=== PATIENT | male | born 1935 | race Caucasian/White ===

== ENCOUNTER 2017-06-12 07:51 | Observation (INO) | payer MEDICARE ==
[2017-06-12 08:55] LABS: ABS Basophils 0.1 10^3/ul (0-0.2); ABS Eosinophils 0.1 10^3/ul (0-0.6); ABS Lymphocytes 2.3 10^3/ul (1.0-4.8); ABS Monocytes 0.8 10^3/ul (0-0.8); ABS Neutrophils 5.6 10^3/ul (1.5-7.7); ABS Nucleated RBC 0 10^3/ul; Eosinophil % 1.3 % (0-6); Hematocrit 46 % (42-52); Hemoglobin 15.6 g/dl (14.0-18.0); Lymphocyte % 25.7 % (25-47); Mean Corpuscular HGB Conc 34 g/dl (31-36); Mean Corpuscular Hemoglobin 31 pg (27-31); Mean Corpuscular Volume 92 fL (80-94); Nucleated Red Blood Cells % 0; Platelet Count 234 10^3/ul (150-450); Red Blood Count 4.98 10^6/ul (4.0-5.4); Red Cell Distribution Width 14 % (10.5-15); White Blood Count 8.9 10^3/ul (3.5-10.8)
[2017-06-12] MEDS ORDERED: Lidocaine 1% INJ* 10 MG/ML 30 ML SDV ONE ×2 (08:55→09:14)
[2017-06-12] MEDS ORDERED: ceFAZolin 1 GM VIAL(*) 2 GM in NS 0.9% 50 ML* 50 ML IVPB ONE (09:00)
[2017-06-12] MEDS ORDERED: ceFAZolin VIAL 1 GM in NS *SYRINGE * * 10 ML ONE (09:00)
[2017-06-12 09:08] LABS: INR 0.91 (0.77-1.02)
[2017-06-12 09:13] LABS: EGFR Non-African American 62.3 (>60)
[2017-06-12] MEDS ORDERED: Midazolam* 1 MG/ML 5 ML VIAL (5 MG) ONE (09:14)
[2017-06-12] MEDS ORDERED: fentaNYL* 50 MCG/ML 2 ML VIAL (100 MCG VIAL) ONE (09:14)
--- NOTE | 2017-06-12 12:43 | RAD ---
HISTORY: Status post device implant COMPARISONS: None VIEWS: 1: frontal portable view of the chest at 11:00 AM FINDINGS: LINES AND TUBES: A left-sided pacemaker is noted. CARDIOMEDIASTINAL SILHOUETTE: The cardiomediastinal silhouette is normal for portable technique. PLEURA: The costophrenic angles are sharp. No pleural abnormalities are noted. There is no appreciable pneumothorax. LUNG PARENCHYMA: The lungs are clear. ABDOMEN: The upper abdomen is clear. There is no subphrenic gas. BONES AND SOFT TISSUES: No bone or soft tissue abnormalities are noted. IMPRESSION: NO ACTIVE CARDIOPULMONARY DISEASE.
[2017-06-12] MEDS: ceFAZolin 1 GM in Dextrose (*) 1 GM/50 ML BAG IVPB SCH (16:36)
[2017-06-12] MEDS ORDERED: ceFAZolin 1 GM VIAL(*) 1 GM in NS 0.9% 50 ML* 50 ML IVPB SCH (18:00)
[2017-06-12] MEDS ORDERED: Acetaminophen TAB* 325 MG PO ONE (22:00)
[2017-06-13] MEDS: ceFAZolin 1 GM in Dextrose (*) 1 GM/50 ML BAG IVPB SCH ×2 (00:35→08:00)
--- NOTE | 2017-06-13 03:46 | OP ---
DATE OF OPERATION: 06/12/17 - ROOM #447 DATE OF : 35 SURGEON: Albaro Meredith MD ANESTHESIA: Local anesthesia with conscious sedation. PRE-OP DIAGNOSIS: Third-degree heart block. POST-OP DIAGNOSIS: Third-degree heart block. OPERATIVE PROCEDURE: Dual-chamber pacemaker implantation. ESTIMATED BLOOD LOSS: Nil. COMPLICATIONS: None. INDICATIONS: The patient is an 81-year-old gentleman with a history of peripheral vascular disease, who has a history of bradycardia. The patient was seen in my office and was noted to be in third-degree heart block with a heart rate of 40 beats per minute. The patient had no symptoms, but permanent pacemaker was recommended. DESCRIPTION OF PROCEDURE: The patient was brought to the operating room in a fasting state. Informed consent have been obtained prior to the procedure. All labs are reviewed. The patient was placed supine on a procedure table whose left anterior chest was prepped and draped in usual fashion. 1% lidocaine was used for local anesthesia. Under ultrasound guidance, the axillary vein was entered by a modified Seldinger technique and a guidewire was placed. A second guidewire was placed in the same technique. A 4-cm incision was made in the pectoral area and blunt dissection was carried down to the pectoral fascia. A small pocket was fashioned for the pacemaker. Over the first guidewire, a 7-Russian sheath introducer was placed through which a right ventricular lead was advanced to the RV apex. The right ventricular lead is a Medtronic model 5076, serial number [id number] and a RV sensitivity of 7. Impedance 817 ohms, threshold 0.4 volts at 0.5 milliseconds. The ventricular lead was sutured to the pectoral fascia using 0 silk. Over the second guidewire, a 7-Russian sheath introducer was placed through which a right atrial lead was advanced to the high right atrium. The right atrial lead is a Medtronic model 5076, serial number [id number] and P-wave sensitivity of 2.7, impedance 782 ohms, threshold 0.6 volts at 0.5 milliseconds. The atrial lead was sutured to the pectoral fascia using 0 silk. The pocket was flushed with antibiotic infused normal saline and a new generator was attached appropriately to the atrial and ventricular lead. The generator is a [employer] model W1DR01, serial number [id number]. The device was placed in the pocket. The surgical incision was closed in 3 layers. The patient was returned to the holding area in stable condition. [id number]/[facility] #: [id number] DUSTIN
[2017-06-13] MEDS ORDERED: Acetaminophen TAB* 325 MG PO PRN (07:42)
[2017-06-13 08:43] VITALS: BP 157/66
--- NOTE | 2017-06-13 09:02 | RAD ---
HISTORY: Status post device implant COMPARISONS: June 12, 2017 VIEWS: 4: Frontal dual-energy and lateral views of the chest. FINDINGS: CARDIOMEDIASTINAL SILHOUETTE: The cardiomediastinal silhouette is normal. ÓSCAR: The óscar are normal. PLEURA: The costophrenic angles are sharp. No pleural abnormalities are noted. LUNG PARENCHYMA: The lungs are clear. ABDOMEN: The upper abdomen is clear. There is no subphrenic gas. BONES AND SOFT TISSUES: No bone or soft tissue abnormalities are noted. OTHER: A left-sided pacemaker is noted. IMPRESSION: NO ACTIVE CARDIOPULMONARY DISEASE.
--- NOTE | 2017-06-13 11:04 | DS ---
DATE OF ADMISSION: 06/12/2017. DATE OF DISCHARGE: 06/13/2017. INDICATION FOR ADMISSION: Pacemaker implantation. Please see admission history and physical for details of the patient's presentation. The patient is an 81-year-old gentleman with a history of peripheral vascular disease who was found t o be in stable third degree heart block at my office. Permanent pacemaker was recommended. The patient underwent a dual chamber pacemaker implantation yesterday. He has a Medtronic, model W1D R01. The device was tested today. It was noted to be functioning normally. P-wave sensitivity of 1, righ t atrial impedance 437 ohms, threshold 0.5 volts at 0.4 msec. The right ventricular lead wa s unable to do sensing as he is now pacemaker dependent. RV impedance 513 ohms, threshold 0.5 volts at 0.4 msec. The patient's chest x-ray today is normal. PHYSICAL EXAMINATION: Vital signs are stable. Lungs: Clear to auscultation. Cardiac exam: S1, S2 without any murmurs, rubs, or gallops. Pacemaker site is stable. Minimal ecchymosis. No hematoma. No erythema. Dressing was changed. DISPOSITION: The patient will be discharged home. DISCHARGE MEDICATIONS: 1. Lisinopril 20 mg a day. 2. Multivitamin a day. 3. Aspirin 81 mg a day. 4. The patient will continue on Keflex 250 mg three times a day for 3 days. FOLLOW-UP: The patient will see me in follow-up in one week. [id number]/[facility] #: [id number]
== END 2017-06-13 11:28 | disposition home or self-care (01) ==
LOC: CHICATH 07:51 → MEDTELE 10:14
PROVIDERS: ADMIT Specialist; ATTEND Specialist
PROC: 02H63JZ Insertion of Pacemaker Lead into Right Atrium, Percutaneous Approach (ICD-10-PCS; 2017-06-12)
PROC: 02HK3JZ Insertion of Pacemaker Lead into Right Ventricle, Percutaneous Approach (ICD-10-PCS; 2017-06-12)
PROC: 02HN0JZ Insertion of Pacemaker Lead into Pericardium, Open Approach (ICD-10-PCS; 2017-06-12)
PROC: 0JH606Z Insertion of Pacemaker, Dual Chamber into Chest Subcutaneous Tissue and Fascia, Open Approach (ICD-10-PCS; principal; 2017-06-12 09:00)
DX: I44.2 Atrioventricular block, complete (principal); I73.9 Peripheral vascular disease, unspecified; M47.9 Spondylosis, unspecified; I10 Essential (primary) hypertension; F17.210 Nicotine dependence, cigarettes, uncomplicated; Z79.82 Long term (current) use of aspirin
CPT/HCPCS: 36415; 71045; 71046; 80048; 85025; 85610; 93005; A9270-GY; G0378; J0690; J2250; J3010

== ENCOUNTER 2019-05-16 06:50 | Day surgery (SDC) | payer MEDICARE ==
[~2019-05-16 06:50] MED LIST: Acetaminophen TAB* 325 MG PO ONE; Buffered Lidocaine 1% SYRIN* 1 ML/SYRINGE INTRADERM ONE; Famotidine IV* 10 MG/ML 2 ML (20 mg) IV ONE; Lactated Ringers 1000 ML Bag* 1,000 ML IV SCH
[2019-05-16] MEDS ORDERED: Lidocaine 2.5%/Prilocain 2.5%* 5 GM TUBE ONE (07:36)
[2019-05-16] MEDS ORDERED: Acetaminophen TAB* 325 MG ONE (12:13)
[2019-05-16] MEDS ORDERED: ceFAZolin 2 GM PREMIX in ORs 2 GM/50 ML BAG ONE (12:13)
[2019-05-16] MEDS ORDERED: Famotidine IV* 10 MG/ML 2 ML (20 mg) ONE (12:13)
[2019-05-16] MEDS ORDERED: Midazolam* 1 MG/ML 2 ML VIAL (2 MG) ONE (14:26)
[2019-05-16] MEDS ORDERED: Mineral Oil Sterile, TOPICAL* 25 ML BTL ONE ×2 (14:35→14:53)
[2019-05-16] MEDS ORDERED: Methylene Blue 0.5 %* 50 MG/10 ML AMP IV ONE (14:35)
[2019-05-16] MEDS ORDERED: Lidocaine 1% w EPI 1:100,000* MDV 20 ML VIAL ONE (14:35)
[2019-05-16] MEDS ORDERED: Bupivacaine 0.25% SDV* 30 ML ONE (14:36)
[2019-05-16] MEDS ORDERED: Lidocaine 2% PF * 5 ML VIAL ONE (15:26)
[2019-05-16] MEDS ORDERED: fentaNYL* 50 MCG/ML 2 ML VIAL (100 MCG VIAL) ONE (15:31)
[2019-05-16] MEDS ORDERED: Propofol* 10 MG/ML 20 ML BTL ONE (15:31)
[2019-05-16] MEDS ORDERED: Ondansetron INJ* 2 MG/ML VIAL IV PRN (16:19)
[2019-05-16] MEDS ORDERED: DiMENhydriNATE IV* 50 MG/ML VIAL IV PUSH PRN (16:19)
[2019-05-16] MEDS ORDERED: Levalbuterol 0.63MG/3ML NEB* UNIT OF USE INH PRN (16:19)
[2019-05-16] MEDS ORDERED: Naloxone* 0.4 MG/ML 1 ML VIAL IV PRN (16:19)
[2019-05-16] MEDS ORDERED: HYDROcodone/ACETAMIN 5-325 MG* 1 TAB PO PRN (16:19)
[2019-05-16] MEDS ORDERED: Acetaminophen TAB* 325 MG PO PRN (16:19)
[2019-05-16] MEDS ORDERED: Bacitracin OINTMENT* 0.5% 0.5 oz TUBE ONE (16:58)
[2019-05-16 17:08] VITALS: BP 154/74
== END 2019-05-16 17:45 | disposition home or self-care (01) ==
LOC: SDS 06:50
PROVIDERS: ATTEND Plastic Surgery
DX: C43.4 Malignant melanoma of scalp and neck (principal); I10 Essential (primary) hypertension; I71.4 Abdominal aortic aneurysm, without rupture; J44.9 Chronic obstructive pulmonary disease, unspecified; F17.210 Nicotine dependence, cigarettes, uncomplicated; M54.9 Dorsalgia, unspecified; Z85.46 Personal history of malignant neoplasm of prostate
CPT/HCPCS: 78195; 88305; A9270-GY; A9541; J0690; J2250; J2704; J3010; J3490